=== PATIENT | male | born 1995 ===

== ENCOUNTER → 2021-06-07 11:47 | Outpatient (CLI) | payer OTHER, MEDICAID, SELFPAY ==
[2021-06-07 21:57] LABS: COVID19 - ORCAS (NP or Nasal) Negative (Negative)
== END ==
PROVIDERS: PCP Family Medicine; Referring Provider Family Medicine; Visit Provider Family Medicine
DX: Z20.822 Contact with and (suspected) exposure to COVID-19 (principal)
CPT/HCPCS: C9803; U0003